=== PATIENT | male | born 1975 | race Caucasian/White ===

== ENCOUNTER 2018-11-26 18:23 | Observation (INO) ==
--- NOTE | 2018-11-26 18:36 | CT Scan Report ---
HEAD CT NONCONTRAST CT DOSE: 709.48 mGy.cm HISTORY: Stroke evaluation TECHNIQUE: Multiaxial CT images of the head were performed without the use of intravenous contrast. A utomated exposure control was utilized for this study. A dose lowering technique was utilized adheri ng to the principles of ALARA. Comparison: None. Findings: Partial aspiration of the left posterior ethmoid air cells. The mastoid air cells are clear . The calvarium and skull base are intact. Focal area of encephalomalacia within the left frontoparie saud junction consistent with an old infarct. There is no mass, hematoma, midline shift, or acute infa rct. Impression: No acute abnormality. 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 Electronically signed by: Jed Mcqueen M.D. 11/26/2018 6:35 PM
[2018-11-26 18:52] LABS: Basophils # (auto) 0.06 K/uL (0-0.2); Basophils % (auto) 0.5 %; Eosinophils # (auto) 0.35 K/uL (0-0.5); Eosinophils % (auto) 3.2 %; Hematocrit (blood only) 35.2 % (42-52); Hemoglobin 12.3 g/dL (14.0-18.0); Immature Granulocytes # (auto) 0.03 K/uL (0.00-0.02); Immature Granulocytes % (auto) 0.3 %; Lymphocytes # (auto) 3.24 K/uL (1.2-3.4); Lymphocytes % (auto) 29.2 %; Mean Corpuscular Hgb Conc 34.9 g/dL (32-36); Mean Platelet Volume 8.9 fL (7.4-10.4); Monocytes # (auto) 0.61 K/uL (0.11-0.59); Monocytes % (auto) 5.5 %; Neutrophils # (auto) 6.79 K/uL (1.4-6.5); Neutrophils % (auto) 61.3 %; Platelet Count 416 K/uL (130-400); RDW Coefficient of Variation 13.1 % (11.5-14.5); RDW Standard Deviation 40.4 fL (36.4-46.3); Red Blood Count 4.14 M/uL (4.7-6.1); White Blood Count 11.08 K/uL (4.8-10.8)
[2018-11-26 19:02] LABS: iSTAT Creatinine 0.7 mg/dl (0.6-1.3); iSTAT Hemoglobin 11.9 g/dl (14.0-18.0); iSTAT Ionized Calcium 1.14 mmol/l (1.12-1.32); iSTAT Potassium 4.3 mEq/L (3.3-5.0)
[2018-11-26 19:10] LABS: Alanine Aminotransferase 19 U/L (12-78); Albumin Level 3.8 gm/dl (3.4-5.0); Aspartate Aminotransferase 12 U/L (15-37); BUN Creatinine Ratio 18.7 (10-20); Blood Urea Nitrogen 17 mg/dl (7-18); Calcium 9.1 mg/dl (8.5-10.1); Carbon Dioxide 25 mmol/L (21-32); Chloride 100 mmol/L (98-107); Creatinine Clr Calc Pharmacy 147.6 ml/min; Est GFR (African American) 121.9; Est GFR (Non-African American) 105.2; Glucose 258 mg/dl (70-99); Magnesium 1.8 mg/dl (1.8-2.4); Potassium 3.8 mmol/L (3.5-5.1); Sodium 135 mmol/L (136-145)
[2018-11-26 19:15] LABS: Albumin Globulin Ratio 1.1 (0.9-2); Alkaline Phosphatase 102 U/L (45-117); Bilirubin,Total 0.3 mg/dl (0.2-1); Globulin 3.6 gm/dl (2.5-4.0); Total Protein 7.4 gm/dl (6.4-8.2); Troponin I < 0.015 ng/ml (0-0.045)
--- NOTE | 2018-11-26 19:20 | XRay Report ---
XR chest 1V portable HISTORY: Stroke symptoms. COMPARISON: None. FINDINGS: Increased markings within the right medial lung base. This may be due to vascular crowding. Otherwise, the lungs are clear. The heart is normal in size. No pleural effusions. No pneumothorax. IMPRESSION: No acute process. Electronically signed by: Jed Mcqueen M.D. 11/26/2018 7:19 PM
[2018-11-26] MEDS ORDERED: OPTIRAY 320 125ml IV PRN (19:28)
--- NOTE | 2018-11-26 20:05 | CT Scan Report ---
HEAD & NECK CTA HISTORY: Stroke symptoms. Weakness. TECHNIQUE: Multiaxial CT images of the head were performed following the intravenous administration o f contrast to evaluate the major cerebral vessels. Multiaxial CT images of the neck were also perform ed following the intravenous administration of contrast to evaluate the major cervical vessels. Maxim um intensity projection images were also obtained. A dose lowering technique was utilized adhering to the principles of ALARA. COMPARISON: Head CT 11/26/2018. FINDINGS: Encephalomalacia within the left frontal parietal region suggest an old infarct. The major dural veno us sinuses are widely patent. Calcified plaque within the distal vertebral arteries and bilateral car otid siphons. This results in moderate multifocal narrowing within the right carotid siphon and mild multifocal narrowing within the left carotid siphon. There is abrupt cut off at the distal left M1 se gment with reconstitution of the distal branches. This may account for the old left MCA territory inf arct. Mild focal narrowing within the bilateral distal vertebral arteries. The bilateral waste management specialist are pat ent. The right A1 segment is absent likely on a congenital basis. No aneurysms identified. The aortic arch and proximal great vessels are widely patent. The bilateral vertebral arteries are patent. Moderate calcified plaque within the bilateral carotid bifurcations, right greater than left. This results in 75% focal stenosis at the takeoff of the right internal carotid artery. There is als o focal mild narrowing of approximately 40% at the distal cervical internal carotid artery best seen on image [id number]. There is focal hypodensity surrounding this with associated calcification. This could r epresent a chronic dissection. This also results in mild aneurysmal dilatation at this location measu ring up to 7 mm. IMPRESSION: 1. Abrupt cut off within the distal left and 1 segment of the MCA with reconstitution of the distal b ranches. This may account for the old left MCA territory infarct is technically age indeterminate. Co nsider brain MRI to evaluate for an acute infarct. 2. Moderate right and mild left multifocal narrowing within the bilateral carotid siphons due to the calcified plaque. 3. Approximate 75% focal stenosis at the takeoff of the right internal carotid artery. 4. 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 This could also represent a chronic dissection and resu lts in 40% narrowing at this location. 5. Additional findings as described above. 2. No significant stenosis, occlusion, or dissection identified within the carotid or vertebral arter ies. Electronically signed by: Jed Mcqueen M.D. 11/26/2018 8:02 PM
[2018-11-26 20:19] LABS: Partial Thromboplastin Time 25.9 Seconds (21.0-31.0); Prothrombin Time 10.7 Seconds (9.0-12.0)
[2018-11-26] MEDS ORDERED: ASPIRIN CHEW 324 MG PO STA (20:29)
[2018-11-26] MEDS ORDERED: SODIUM CHLORIDE 0.9% 1000ML 1,000 ML IV SCH (20:30)
--- NOTE | 2018-11-26 21:37 | History & Physical Report ---
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 Brilinta/aspirin prophylaxis history Plavix resistance as per patient Patient on Plavix instead of usual home dual antiplatelet Rx for the last 2 weeks at psychiatric facility due to unavailability (nonformulary designation) of latter meds hypertension, slightly elevated hyperlipidemia on statin Rx, recent profile drawn during stay at the [facility] PVD status post surgery DM 2 insulin requiring, BSGs in the 200s, unknown baseline control mood disorder, stable following [facility] confinement seizure disorder, stable on Keppra Rx, patient claims last blank staring episode was last week New onset anemia (patient denies prior history although records mention vitamin B12 deficiency, patient denies bleeding concerns) past tobacco abuse OBS Medical telemetry Neurochecks Resume Brilinta-aspirin dual antiplatelet Rx after Brilinta load Permissive hypertension MRI, MRA of the brain, TTE RE recurrent TIA Neurology consult RE recurrent TIA Basal insulin, ISS BG goal 1 40-1 80, carb count coverage, check hemoglobin A1c Anemia work-up DVT prophylaxis. Lovenox subcu Full code History of Present Illness Chief Complaint: Right-sided numbness, weakness Primary Care Provider: Guilherme Sylvester, PA History obtained from patient and records. Medical history significant for recurrent CVA/TIas on dual Brilinta/aspirin prophylaxis, history Plavix resistance as per patient, PVD status post surgery, hypertension, hyperlipidemia, DM 2 insulin requiring, mood disorder, seizure disorder, past tobacco abuse. Patient has been confined at the [facility] the last 2 weeks for mood issues. Patient's home Brilinta/aspirin replaced with Plavix upon arrival at the psychiatric center 2 weeks ago due to Brilinta unavailability at the facility. Patient claims he notified [facility] medical provider of hx Plavix resistance on testing but "they did not listen." Slated to be discharged in the next 2 days given improvement of psychiatric issues. Around 4 PM today patient noted right face, right upper extremity, and right lower extremity numbness, weakness similar to strokes in the past. Transient slurred speech symptoms. Transient achy headache symptoms. Stroke alert called upon arrival at the ER. Patient noted improvement of neurologic symptoms. Full dose aspirin given at the ER on the recommendation of tele-stroke specialist. Medical History as above Lipid panel October, as follows : Total cholesterol 152, serum triglycerides 181, HDL cholesterol 39, VLDL cholesterol 36, LDL cholesterol 77 Surgical History : Tonsillectomy, carotid endarterectomy, hernia surgery Family History : Heart disease, diabetes, stroke Personal/Social history : Past tobacco abuse, occasional EtOH intake, currently unemployed, was previously security work Allergies Allergy/AdvReac Type Severity Reaction Status Date / Time tramadol Allergy Rash Verified 11/26/18 19:04 Home Medications Home Medications Medication Instructions Recorded Confirmed Type acetaminophen [Tylenol] 650 mg PO Q4 PRN 11/26/18 11/26/18 History aripiprazole 10 mg PO HS 11/26/18 11/26/18 History atorvastatin 80 mg PO QAM 11/26/18 11/26/18 History clopidogrel [Plavix] 75 mg PO DAILY 11/26/18 11/26/18 History famotidine 20 mg PO BID PRN 11/26/18 11/26/18 History hydroxyzine pamoate [Vistaril] 50 mg PO HS 11/26/18 11/26/18 History insulin aspart U-100 1 sliding scale dose SUBCUT 11/26/18 11/26/18 History USEASDIRECTD insulin detemir U-100 [Levemir 60 unit SUBCUT HS 11/26/18 11/26/18 History U-100 Insulin] lamotrigine 50 mg PO BID 11/26/18 11/26/18 History levetiracetam [Keppra] 500 mg PO BID 11/26/18 11/26/18 History lidocaine 1 patch TOPICAL QAM 11/26/18 11/26/18 History lisinopril 10 mg PO DAILY 11/26/18 11/26/18 History metformin 1,000 mg PO BID 11/26/18 11/26/18 History metoprolol tartrate 75 mg PO BID 11/26/18 11/26/18 History nicotine 1 patch TRANSDERMAL DAILY 11/26/18 11/26/18 History simethicone 160 mg PO BID PRN 11/26/18 11/26/18 History venlafaxine 37.5 mg PO HS 11/26/18 11/26/18 History zolpidem [Ambien] 10 mg PO HS 11/26/18 11/26/18 History Past Med/Surg History Medical History Stroke TIA (transient ischemic attack) Surgical History No pertinent past surgical history Family History Other No pertinent family history Social History Preferred Language: Icelandic Communication Ability: Effective Second Helper Required: No Beliefs That Will Affect Care: None marital status: Current Living Situation: Spouse and Other Current Living Situation Comment: currently at the [facility] Feels Safe at Home: Yes Safety Concerns: Feels Safe At This Time Smoking Status: Former smoker Do You Dip or Chew Tobacco: No ; Hx Alcohol Use: No Hx Substance Use: No Review of Systems Review of Systems: As per HPI, all 10 systems reviewed, all other ROS negative Physical Exam Physical Exam: GENERAL: Comfortable, obese, no respiratory distress, sitting on the stretcher with legs crossed SKIN: Pallor, warm HEENT: Pale palpebral conjunctivae, no ptosis, dry buccal mucosa NECK : Supple, short neck, no tenderness CHEST : CTA, no tenderness HEART : RRR, no obvious murmurs ABDOMEN: Some distention, nontender EXTREMITIES : Minimal LE swelling, no LE tenderness, no other conspicuous deformities noted NEUROLOGIC : Coherent, no facial asymmetry, no other gross focality Results & Data Vital Signs (Past 12 Hours) Vital Signs Temp Pulse Pulse Resp BP BP Pulse Ox 11/26/18 21:01 77 21 154/90 H 100 11/26/18 20:44 81 17 157/92 H 100 11/26/18 20:31 83 20 157/92 H 100 11/26/18 20:15 84 18 150/93 H 100 11/26/18 20:00 86 18 142/85 H 100 11/26/18 19:45 80 21 131/71 11/26/18 19:37 85 80 23 140/75 140/75 96 11/26/18 19:15 82 19 146/90 H 100 11/26/18 19:00 83 22 115/69 99 11/26/18 18:55 83 23 147/86 H 98 11/26/18 18:38 37 C 84 18 159/92 H 97 Laboratory Results Laboratory Results WBC 11.08 K/uL (4.8-10.8) H 11/26/18 18:42 RBC 4.14 M/uL (4.7-6.1) L 11/26/18 18:42 Hgb 12.3 g/dL (14.0-18.0) L 11/26/18 18:42 POC Hgb 11.9 g/dl (14.0-18.0) L 11/26/18 18:47 Hct 35.2 % (42-52) L 11/26/18 18:42 POC Hct 35 % (42-52) L 11/26/18 18:47 MCV 85.0 fL (80-100) 11/26/18 18:42 MCH 29.7 pg (25-34) 11/26/18 18:42 MCHC 34.9 g/dL (32-36) 11/26/18 18:42 RDW Std Deviation 40.4 fL (36.4-46.3) 11/26/18 18:42 RDW Coeff of Renata 13.1 % (11.5-14.5) 11/26/18 18:42 Plt Count 416 K/uL (130-400) H 11/26/18 18:42 MPV 8.9 fL (7.4-10.4) 11/26/18 18:42 Immature Gran % (Auto) 0.3 % 11/26/18 18:42 Neut % (Auto) 61.3 % 11/26/18 18:42 Lymph % (Auto) 29.2 % 11/26/18 18:42 [place] % (Auto) 5.5 % 11/26/18 18:42 Eos % (Auto) 3.2 % 11/26/18 18:42 Baso % (Auto) 0.5 % 11/26/18 18:42 Immature Gran # (Auto) 0.03 K/uL (0.00-0.02) H 11/26/18 18:42 Neut # (Auto) 6.79 K/uL (1.4-6.5) H 11/26/18 18:42 Lymph # (Auto) 3.24 K/uL (1.2-3.4) 11/26/18 18:42 [place] # (Auto) 0.61 K/uL (0.11-0.59) H 11/26/18 18:42 Eos # (Auto) 0.35 K/uL (0-0.5) 11/26/18 18:42 Baso # (Auto) 0.06 K/uL (0-0.2) 11/26/18 18:42 PT 10.7 Seconds (9.0-12.0) 11/26/18 19:50 INR 1.0 (0.9-1.1) 11/26/18 19:50 APTT 25.9 Seconds (21.0-31.0) 11/26/18 19:50 PTT Ratio 1.0 11/26/18 19:50 POC Sodium 134 mEq/L (135-144) L 11/26/18 18:47 Sodium 135 mmol/L (136-145) L 11/26/18 18:42 POC Potassium 4.3 mEq/L (3.3-5.0) 11/26/18 18:47 Potassium 3.8 mmol/L (3.5-5.1) 11/26/18 18:42 POC Chloride 96 mEq/L (101-112) L 11/26/18 18:47 Chloride 100 mmol/L (98-107) 11/26/18 18:42 Carbon Dioxide 25 mmol/L (21-32) 11/26/18 18:42 POC Total CO2 26 mEq/l (24-31) 11/26/18 18:47 Anion Gap 10.0 (3-11) 11/26/18 18:42 POC Anion Gap 17.0 mmol/L (16-25) 11/26/18 18:47 POC BUN 20 mg/dl (7-18) H 11/26/18 18:47 BUN 17 mg/dl (7-18) 11/26/18 18:42 Creatinine 0.88 mg/dl (0.6-1.4) 11/26/18 18:42 POC Creatinine 0.7 mg/dl (0.6-1.3) 11/26/18 18:47 Est Cr Clr Drug Dosing 147.6 ml/min 11/26/18 18:42 Est GFR ( Amer) 121.9 11/26/18 18:42 Est GFR (Non-Af Amer) 105.2 11/26/18 18:42 BUN/Creatinine Ratio 18.7 (10-20) 11/26/18 18:42 Glucose 258 mg/dl (70-99) H 11/26/18 18:42 POC Glucose (other) 268 mg/dl (70-99) H 11/26/18 18:47 Calcium 9.1 mg/dl (8.5-10.1) 11/26/18 18:42 POC Ioniz Calcium Trevor 1.14 mmol/l (1.12-1.32) 11/26/18 18:47 Magnesium 1.8 mg/dl (1.8-2.4) 11/26/18 18:42 Total Bilirubin 0.3 mg/dl (0.2-1) 11/26/18 18:42 AST 12 U/L (15-37) L 11/26/18 18:42 ALT 19 U/L (12-78) 11/26/18 18:42 Alkaline Phosphatase 102 U/L (45-117) 11/26/18 18:42 Troponin I < 0.015 ng/ml (0-0.045) 11/26/18 18:42 Total Protein 7.4 gm/dl (6.4-8.2) 11/26/18 18:42 Albumin 3.8 gm/dl (3.4-5.0) 11/26/18 18:42 Globulin 3.6 gm/dl (2.5-4.0) 11/26/18 18:42 Albumin/Globulin Ratio 1.1 (0.9-2) 11/26/18 18:42 TSH 0.818 uIu/ml (0.300-4.500) 11/26/18 18:[address] head: No acute abnormality. 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 CTA head neck: 1. Abrupt cut off within the distal left and 1 segment of the MCA with reconstitution of the distal branches. This may account for the old left MCA territory infarct is technically age indeterminate. Consider brain MRI to evaluate for an acute infarct. 2. Moderate right and mild left multifocal narrowing within the bilateral carotid siphons due to the calcified plaque. 3. Approximate 75% focal stenosis at the takeoff of the right internal carotid a rtery. 4. 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 This could also represent a chronic dissection and results in 40% narrowing at this location. 5. Additional findings as described above. 2. No significant stenosis, occlusion, or dissection identified within the carotid or vertebral arteries. Chest x-ray: No acute process EKG as per my interpretation : Rate 80, NSR, normal axis, no ischemia
[2018-11-26] MEDS ORDERED: TICAGRELOR 90 MG TAB PO ONE (21:58)
--- NOTE | 2018-11-26 22:42 | Emergency Department Note ---
Entered by Ally Cano acting as a scribe for Kalpana Cabral MD History of Present Illness General Chief complaint: Stroke/CVA Symptoms Time Seen by Provider: 11/26/18 18:24 Source: patient and EMS History of Present Illness Onset (ago): hour(s) (1.5) Location: face, upper extremity (arm) and right Pain Consistency: + constant Quality: + other (weakness) Associated symptoms: + other (tingling, dizziness) The patient is a 43 year old male who presents to the Emergency Room with complaints of an episode of right sided weakness in his face and arm beginning 1.5 hours ago. The patient reports tingling in his right arm beginning 2.5 hours ago. He states that he had an episode of dizziness and weakness yesterday evening that resolved on its own. The patient states that he has a history of stroke and TIAs. He notes the most recent major stroke occurred 5 years ago. The patient states that he has a history of smoking and is still currently smoking. EMS states the patient has a history of carotid stenosis, and that he is currently taking Plavix. EMS reports the patient is currently an inpatient at [facility]. EMS reports that the patient is speaking clearly, however he keeps changing his story and symptom's timeline. EMS notes that the patient has a his tory of depression, diabetes, and high blood pressure. EMS states the patient has no allergies. Home Medications Home Medications Medication Instructions Recorded Confirmed Type acetaminophen [Tylenol] 650 mg PO Q4 PRN 11/26/18 11/26/18 History aripiprazole 10 mg PO HS 11/26/18 11/26/18 History atorvastatin 80 mg PO QAM 11/26/18 11/26/18 History clopidogrel [Plavix] 75 mg PO DAILY 11/26/18 11/26/18 History famotidine 20 mg PO BID PRN 11/26/18 11/26/18 History hydroxyzine pamoate [Vistaril] 50 mg PO HS 11/26/18 11/26/18 History insulin aspart U-100 1 sliding scale dose SUBCUT 11/26/18 11/26/18 History USEASDIRECTD insulin detemir U-100 [Levemir 60 unit SUBCUT HS 11/26/18 11/26/18 History U-100 Insulin] lamotrigine 50 mg PO BID 11/26/18 11/26/18 History levetiracetam [Keppra] 500 mg PO BID 11/26/18 11/26/18 History lidocaine 1 patch TOPICAL QAM 11/26/18 11/26/18 History lisinopril 10 mg PO DAILY 11/26/18 11/26/18 History metformin 1,000 mg PO BID 11/26/18 11/26/18 History metoprolol tartrate 75 mg PO BID 11/26/18 11/26/18 History nicotine 1 patch TRANSDERMAL DAILY 11/26/18 11/26/18 History simethicone 160 mg PO BID PRN 11/26/18 11/26/18 History venlafaxine 37.5 mg PO HS 11/26/18 11/26/18 History zolpidem [Ambien] 10 mg PO HS 11/26/18 11/26/18 History Allergies Allergy/AdvReac Type Severity Reaction Status Date / Time tramadol Allergy Rash Verified 11/26/18 19:04 Past Med/Surg History Medical History Stroke TIA (transient ischemic attack) Surgical History No pertinent past surgical history Family History Other No pertinent family history Social History Preferred Language: Togolese Communication Ability: Effective Print Journalist Required: No Beliefs That Will Affect Care: None marital status: Current Living Situation: Spouse and Other Current Living Situation Comment: currently at [facility] Feels Safe at Home: Yes Safety Concerns: Feels Safe At This Time Smoking Status: Former smoker Do You Dip or Chew Tobacco: No ; Hx Alcohol Use: No Hx Substance Use: No Review of Systems See HPI for pertinent positives & negatives. and A total of 10 systems reviewed and were otherwise negative Physical Exam Vital Signs Vital Signs - 24 hr 11/26/18 18:38 11/26/18 18:55 11/26/18 19:00 Temperature 37 C Temperature Source Oral Sepsis Recent Fever Within 48 Hours No Sepsis Action Taken by Nursing No Action Required Pulse Rate 84 83 Pulse Rate [Apical] 83 Pulse Rate from SpO2 Sensor 83 Respiratory Rate 18 23 22 Respiratory Effort / Characteristics Non-Labored Spontaneous Respiratory Depth Normal Respiratory Pattern Regular Blood Pressure 159/92 H 115/69 Blood Pressure [Left Arm] 147/86 H Blood Pressure Mean 114 84 Blood Pressure Mean [Left Arm] 106 Blood Pressure Position Lying Blood Pressure Position [Left Arm] Lying Pulse Oximetry 97 98 99 Oxygen Delivery Method Room Air Room Air 11/26/18 19:15 11/26/18 19:37 11/26/18 19:45 Temperature Temperature Source Sepsis Recent Fever Within 48 Hours Sepsis Action Taken by Nursing Pulse Rate 82 85 80 Pulse Rate [Apical] 80 Pulse Rate from SpO2 Sensor 83 Respiratory Rate 19 23 21 Respiratory Effort / Characteristics Non-Labored Respiratory Depth Normal Respiratory Pattern Blood Pressure 146/90 H 140/75 131/71 Blood Pressure [Left Arm] 140/75 Blood Pressure Mean 108 96 91 Blood Pressure Mean [Left Arm] 96 Blood Pressure Position Blood Pressure Position [Left Arm] Pulse Oximetry 100 96 Oxygen Delivery Method Room Air 11/26/18 20:00 11/26/18 20:15 11/26/18 20:31 Temperature Temperature Source Sepsis Recent Fever Within 48 Hours Sepsis Action Taken by Nursing Pulse Rate 86 84 83 Pulse Rate [Apical] Pulse Rate from SpO2 Sensor 86 85 83 Respiratory Rate 18 18 20 Respiratory Effort / Characteristics Respiratory Depth Respiratory Pattern Blood Pressure 142/85 H 150/93 H 157/92 H Blood Pressure [Left Arm] Blood Pressure Mean 104 112 113 Blood Pressure Mean [Left Arm] Blood Pressure Position Blood Pressure Position [Left Arm] Pulse Oximetry 100 100 100 Oxygen Delivery Method 11/26/18 20:44 11/26/18 21:01 11/26/18 21:18 Temperature Temperature Source Sepsis Recent Fever Within 48 Hours Sepsis Action Taken by Nursing Pulse Rate 77 81 Pulse Rate [Apical] 81 Pulse Rate from SpO2 Sensor 78 82 Respiratory Rate 17 21 18 Respiratory Effort / Characteristics Non-Labored Respiratory Depth Normal Respiratory Pattern Blood Pressure 154/90 H Blood Pressure [Left Arm] 157/92 H Blood Pressure Mean 111 Blood Pressure Mean [Left Arm] 113 Blood Pressure Position Blood Pressure Position [Left Arm] Pulse Oximetry 100 100 100 Oxygen Delivery Method Room Air 11/26/18 21:20 11/26/18 21:46 Temperature Temperature Source Sepsis Recent Fever Within 48 Hours Sepsis Action Taken by Nursing Pulse Rate 76 69 Pulse Rate [Apical] Pulse Rate from SpO2 Sensor 77 70 Respiratory Rate 17 14 Respiratory Effort / Characteristics Respiratory Depth Respiratory Pattern Blood Pressure 145/82 H 158/90 H Blood Pressure [Left Arm] Blood Pressure Mean 103 112 Blood Pressure Mean [Left Arm] Blood Pressure Position Blood Pressure Position [Left Arm] Pulse Oximetry 100 100 Oxygen Delivery Method Vital signs reviewed. General: Well-appearing middle aged male, in no significant distress. HEENT: No scleral icterus, PERRLA, neck supple. Atraumatic. Cardiovascular: Regular rate and rhythm, no extra sounds. Pulmonary: Clear to auscultation bilaterally, normal work of breathing. Abdomen: Obese. Soft, nontender, nondistended, positive bowel sounds. Musculoskeletal: Atraumatic, no peripheral edema. Neurologic: Patient awake alert and oriented x 3, 4/5 strength in right lower extremity. 5/5 strength in left lower extremity. Cranial nerves 2 through 12 grossly intact. Answering questions appropriately. No tongue deviation. Speech clear. No pronator drift. Intact finger to nose. Skin: Warm, dry, no rash Course 1819: Past medical records reviewed. The patient was evaluated in room B01. A complete history and physical exam was performed. 2129: Upon reevaluation, I discussed findings and results with the patient. He verbalized agreement of the treatment plan. [facility]. The patient will be evaluated for further management and care. Administered Medications Aripiprazole (Abilify) 10 mg PO HS [facility] Stop: 12/26/18 23:06 Last Admin: 11/27/18 20:35 Dose: 10 mg Documented by: [id number] Admin: 11/26/18 23:49 Dose: 10 mg Documented by: [id number] Aspirin (Ecotrin) 81 mg PO [facility] Stop: 12/27/18 08:59 Last Admin: 11/27/18 08:53 Dose: 81 mg Documented by: [id number] Atorvastatin Calcium (Lipitor) 80 mg PO QAM [facility] Stop: 12/27/18 08:59 Last Admin: 11/27/18 08:52 Dose: 80 mg Documented by: [id number] Enoxaparin S[facility] ([facility]ox) [facility] Stop: 12/27/18 08:59 Last Admin: 11/27/18 08:54 Dose: 40 mg Documented by: [id number] Insulin Aspart (Novolog Flexpen) 0 units SC ACHS [facility] Stop: 12/26/18 23:44 Last Admin: 11/27/18 20:46 Dose: 6 units Documented by: [id number] Cosigned by: [id number] Admin: 11/27/18 17:49 Dose: 6 units Documented by: [id number] Cosigned by: [id number] Admin: 11/27/18 12:10 Dose: 5 units Documented by: [id number] Cosigned by: [id number] Admin: 11/27/18 08:50 Dose: 4 units Documented by: [id number] Cosigned by: [id number] Admin: 11/26/18 23:54 Dose: 8 units Documented by: [id number] Cosigned by: [id number] Insulin Detemir (Levemir Flextouch) 30 units SC BID [facility] Stop: 12/26/18 23:44 Last Admin: 11/27/18 20:38 Dose: 30 units Documented by: [id number] Cosigned by: [id number] Admin: 11/27/18 08:55 Dose: 30 units Documented by: [id number] Cosigned by: [id number] Admin: 11/26/18 23:52 Dose: 30 units Documented by: [id number] Cosigned by: [id number] Lamotrigine (Lamictal) 50 mg PO BID [facility] Stop: 12/26/18 23:06 Last Admin: 11/27/18 20:37 Dose: 50 mg Documented by: [id number] Admin: 11/27/18 08:51 Dose: 50 mg Documented by: [id number] Admin: 11/26/18 23:50 Dose: 50 mg Documented by: [id number] Levetiracetam (Keppra) 500 mg PO BID [facility] Stop: 12/26/18 23:06 Last Admin: 11/27/18 20:35 Dose: 500 mg Documented by: [id number] Admin: 11/27/18 08:52 Dose: 500 mg Documented by: [id number] Admin: 11/26/18 23:49 Dose: 500 mg Documented by: [id number] Metoprolol Tartrate (Lopressor) 25 mg PO BID [facility] Stop: 12/27/18 08:59 Last Admin: 11/27/18 20:36 Dose: 25 mg Documented by: [id number] Admin: 11/27/18 08:52 Dose: 25 mg Documented by: [id number] Miscellaneous (Remove Nicoderm Patch) 1 ea N/A HS [facility] Stop: 12/27/18 00:59 Last Admin: 11/27/18 20:51 Dose: Not Given Documented by: [id number] Admin: 11/27/18 05:19 Dose: Not Given Documented by: [id number] Nicotine (Nicoderm Cq) 14 mg TD DAILY [facility] Stop: 12/27/18 08:59 Last Admin: 11/27/18 08:55 Dose: Not Given Documented by: [id number] Ticagrelor (Brilinta) 90 mg PO BID [facility] Stop: 12/27/18 09:59 Last Admin: 11/27/18 20:36 Dose: 90 mg Documented by: [id number] Admin: 11/27/18 10:33 Dose: 90 mg Documented by: [id number] Venlafaxine HCl (Effexor Extended Release) 37.5 mg PO HS [facility] Stop: 12/27/18 20:59 Last Admin: 11/27/18 20:35 Dose: 37.5 mg Documented by: [id number] Zolpidem Tartrate (Ambien) 10 mg PO HS [facility] Stop: 12/27/18 20:59 Last Admin: 11/27/18 20:46 Dose: 10 mg Documented by: [id number] Discontinued Medications Aspirin (Aspirin) 324 mg PO NOW STA Stop: 11/26/18 20:30 Last Admin: 11/26/18 20:34 Dose: 324 mg Documented by: [id number] Sodium Chloride (Nss 1000ml) 1,000 mls @ 125 mls/hr IV .Q8H [facility] Stop: 12/26/18 20:29 Last Infusion: 11/26/18 23:44 Dose: 0 mls/hr Documented by: [id number] Infusion: 11/26/18 23:30 Dose: 0 mls/hr Documented by: [id number] Infusion: 11/26/18 23:30 Dose: 0 mls/hr Documented by: [id number] Admin: 11/26/18 20:32 Dose: 125 mls/hr Documented by: [id number] Potassium Chloride/Sodium Chloride (Normal Saline W/20 Meq Kcl) 20 meq in 1,000 mls @ 60 mls/hr IV .[id number] ONE Stop: 11/27/18 16:24 Last Infusion: 11/27/18 18:27 Dose: 60 mls/hr Documented by: [id number] Infusion: 11/27/18 16:23 Dose: 60 mls/hr Documented by: [id number] Infusion: 11/27/18 14:44 Dose: 0 mls/hr Documented by: [id number] Admin: 11/26/18 23:51 Dose: 60 mls/hr Documented by: [id number] Infusion: 11/26/18 23:51 Dose: 60 mls/hr Documented by: [id number] Admin: 11/26/18 23:47 Dose: 60 mls/hr Documented by: [id number] Ioversol (Optiray 320 125ml) 120 ml IV ONCE PRN PRN Reason: Interaction Checking Stop: 11/30/18 19:27 Last Admin: 11/26/18 19:28 Dose: 120 ml Documented by: [id number] Lorazepam (Ativan) 1 mg PO ONE ONE Stop: 11/27/18 10:57 Last Admin: 11/27/18 14:41 Dose: Not Given Documented by: [id number] Lorazepam (Ativan) 1 mg PO ONE ONE Stop: 11/27/18 14:46 Last Admin: 11/27/18 14:42 Dose: 1 mg Documented by: [id number] Ticagrelor (Brilinta) 180 mg PO ONE ONE Stop: 11/26/18 21:59 Last Admin: 11/26/18 22:18 Dose: 180 mg Documented by: [id number] Medical Decision Making Differential Diagnosis Differential Diagnosis includes but is not limited to dehydration, stroke, anemia, hypoglycemia, hyponatremia, hypernatremia, urinary tract infection, pneumonia, bronchitis, sepsis, gastroenteritis, additional abdominal pathology, metabolic abnormalities and infections. Medical Records Attestation: I reviewed the patient's medical records. Home Medications Current Medication List: was personally reviewed by me Laboratory Data Attestation: I reviewed the patient's lab results. Result diagrams: 11/27/18 06:38 11/27/18 06:38 Lab Results 11/26/18 11/26/18 11/26/18 Range/Units 18:42 18:42 18:42 WBC 11.08 H (4.8-10.8) K/uL RBC 4.14 L (4.7-6.1) M/uL Hgb 12.3 L (14.0-18.0) g/dL POC Hgb (14.0-18.0) g/dl Hct 35.2 L (42-52) % POC Hct (42-52) % MCV 85.0 (80-100) fL MCH 29.7 (25-34) pg MCHC 34.9 (32-36) g/dL RDW Std Deviation 40.4 (36.4-46.3) fL RDW Coeff of Renata 13.1 (11.5-14.5) % Plt Count 416 H (130-400) K/uL MPV 8.9 (7.4-10.4) fL Immature Gran % (Auto) 0.3 % Neut % (Auto) 61.3 % Lymph % (Auto) 29.2 % Craig % (Auto) 5.5 % Eos % (Auto) 3.2 % Baso % (Auto) 0.5 % Immature Gran # (Auto) 0.03 H (0.00-0.02) K/uL Neut # (Auto) 6.79 H (1.4-6.5) K/uL Lymph # (Auto) 3.24 (1.2-3.4) K/uL Craig # (Auto) 0.61 H (0.11-0.59) K/uL Eos # (Auto) 0.35 (0-0.5) K/uL Baso # (Auto) 0.06 (0-0.2) K/uL PT Cancelled INR Cancelled APTT Cancelled PTT Ratio Cancelled POC Sodium (135-144) mEq/L Sodium 135 L (136-145) mmol/L POC Potassium (3.3-5.0) mEq/L Potassium 3.8 (3.5-5.1) mmol/L POC Chloride (101-112) mEq/L Chloride 100 (98-107) mmol/L Carbon Dioxide 25 (21-32) mmol/L POC Total CO2 (24-31) mEq/l Anion Gap 10.0 (3-11) POC Anion Gap (16-25) mmol/L POC BUN (7-18) mg/dl BUN 17 (7-18) mg/dl Creatinine 0.88 (0.6-1.4) mg/dl POC Creatinine (0.6-1.3) mg/dl Est Cr Clr Drug Dosing 147.6 ml/min Est GFR ( Amer) 121.9 Est GFR (Non-Af Amer) 105.2 BUN/Creatinine Ratio 18.7 (10-20) Glucose 258 H (70-99) mg/dl POC Glucose (70-99) POC Glucose (other) (70-99) mg/dl Estimat Average Glucose mg/dl Hemoglobin A1c (4.5-5.6) % Calcium 9.1 (8.5-10.1) mg/dl POC Ioniz Calcium Trevor (1.12-1.32) mmol/l Magnesium 1.8 (1.8-2.4) mg/dl Total Bilirubin 0.3 (0.2-1) mg/dl AST 12 L (15-37) U/L ALT 19 (12-78) U/L Alkaline Phosphatase 102 (45-117) U/L Troponin I < 0.015 (0-0.045) ng/ml Total Protein 7.4 (6.4-8.2) gm/dl Albumin 3.8 (3.4-5.0) gm/dl Globulin 3.6 (2.5-4.0) gm/dl Albumin/Globulin Ratio 1.1 (0.9-2) TSH 0.818 (0.300-4.500) uIu/ml 11/26/18 11/26/18 11/26/18 Range/Units 18:42 18:42 18:47 WBC (4.8-10.8) K/uL RBC (4.7-6.1) M/uL Hgb (14.0-18.0) g/dL POC Hgb 11.9 L (14.0-18.0) g/dl Hct (42-52) % POC Hct 35 L (42-52) % MCV (80-100) fL MCH (25-34) pg MCHC (32-36) g/dL RDW Std Deviation (36.4-46.3) fL RDW Coeff of Renata (11.5-14.5) % Plt Count (130-400) K/uL MPV (7.4-10.4) fL Immature Gran % (Auto) % Neut % (Auto) % Lymph % (Auto) % Craig % (Auto) % Eos % (Auto) % Baso % (Auto) % Immature Gran # (Auto) (0.00-0.02) K/uL Neut # (Auto) (1.4-6.5) K/uL Lymph # (Auto) (1.2-3.4) K/uL Craig # (Auto) (0.11-0.59) K/uL Eos # (Auto) (0-0.5) K/uL Baso # (Auto) (0-0.2) K/uL PT INR APTT PTT Ratio POC Sodium 134 L (135-144) mEq/L Sodium (136-145) mmol/L POC Potassium 4.3 (3.3-5.0) mEq/L Potassium (3.5-5.1) mmol/L POC Chloride 96 L (101-112) mEq/L Chloride (98-107) mmol/L Carbon Dioxide (21-32) mmol/L POC Total CO2 26 (24-31) mEq/l Anion Gap (3-11) POC Anion Gap 17.0 (16-25) mmol/L POC BUN 20 H (7-18) mg/dl BUN (7-18) mg/dl Creatinine (0.6-1.4) mg/dl POC Creatinine 0.7 (0.6-1.3) mg/dl Est Cr Clr Drug Dosing ml/min Est GFR ( Amer) Est GFR (Non-Af Amer) BUN/Creatinine Ratio (10-20) Glucose (70-99) mg/dl POC Glucose 314 H* (70-99) POC Glucose (other) 268 H (70-99) mg/dl Estimat Average Glucose 171 mg/dl Hemoglobin A1c 7.6 H (4.5-5.6) % Calcium (8.5-10.1) mg/dl POC Ioniz Calcium Trevor 1.14 (1.12-1.32) mmol/l Magnesium (1.8-2.4) mg/dl Total Bilirubin (0.2-1) mg/dl AST (15-37) U/L ALT (12-78) U/L Alkaline Phosphatase (45-117) U/L Troponin I (0-0.045) ng/ml Total Protein (6.4-8.2) gm/dl Albumin (3.4-5.0) gm/dl Globulin (2.5-4.0) gm/dl Albumin/Globulin Ratio (0.9-2) TSH (0.300-4.500) uIu/ml 11/26/18 Range/Units 19:50 WBC (4.8-10.8) K/uL RBC (4.7-6.1) M/uL Hgb (14.0-18.0) g/dL POC Hgb (14.0-18.0) g/dl Hct (42-52) % POC Hct (42-52) % MCV (80-100) fL MCH (25-34) pg MCHC (32-36) g/dL RDW Std Deviation (36.4-46.3) fL RDW Coeff of Renata (11.5-14.5) % Plt Count (130-400) K/uL MPV (7.4-10.4) fL Immature Gran % (Auto) % Neut % (Auto) % Lymph % (Auto) % Craig % (Auto) % Eos % (Auto) % Baso % (Auto) % Immature Gran # (Auto) (0.00-0.02) K/uL Neut # (Auto) (1.4-6.5) K/uL Lymph # (Auto) (1.2-3.4) K/uL Craig # (Auto) (0.11-0.59) K/uL Eos # (Auto) (0-0.5) K/uL Baso # (Auto) (0-0.2) K/uL PT 10.7 INR 1.0 APTT 25.9 PTT Ratio 1.0 POC Sodium (135-144) mEq/L Sodium (136-145) mmol/L POC Potassium (3.3-5.0) mEq/L Potassium (3.5-5.1) mmol/L POC Chloride (101-112) mEq/L Chloride (98-107) mmol/L Carbon Dioxide (21-32) mmol/L POC Total CO2 (24-31) mEq/l Anion Gap (3-11) POC Anion Gap (16-25) mmol/L POC BUN (7-18) mg/dl BUN (7-18) mg/dl Creatinine (0.6-1.4) mg/dl POC Creatinine (0.6-1.3) mg/dl Est Cr Clr Drug Dosing ml/min Est GFR ( Amer) Est GFR (Non-Af Amer) BUN/Creatinine Ratio (10-20) Glucose (70-99) mg/dl POC Glucose (70-99) POC Glucose (other) (70-99) mg/dl Estimat Average Glucose mg/dl Hemoglobin A1c (4.5-5.6) % Calcium (8.5-10.1) mg/dl POC Ioniz Calcium Trevor (1.12-1.32) mmol/l Magnesium (1.8-2.4) mg/dl Total Bilirubin (0.2-1) mg/dl AST (15-37) U/L ALT (12-78) U/L Alkaline Phosphatase (45-117) U/L Troponin I (0-0.045) ng/ml Total Protein (6.4-8.2) gm/dl Albumin (3.4-5.0) gm/dl Globulin (2.5-4.0) gm/dl Albumin/Globulin Ratio (0.9-2) TSH (0.300-4.500) uIu/ml Imaging Data Radiologist's Impression: Radiology results as stated below per my review and the radiologist's interpretation: HEAD CT NONCONTRAST CT DOSE: 709.48 mGy.cm HISTORY: Stroke evaluation TECHNIQUE: Multiaxial CT images of the head were performed without the use of intravenous contrast. Automated exposure control was utilized for this study. A dose lowering technique was utilized adhering to the principles of ALARA. Comparison: None. Findings: Partial aspiration of the left posterior ethmoid air cells. The mastoid air cells are clear. The calvarium and skull base are intact. Focal area of encephalomalacia within the left frontoparietal junction consistent with an old infarct. There is no mass, hematoma, midline shift, or acute infarct. Impression: No acute abnormality. 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 Electronically signed by: Jed cMqueen M.D. 11/26/2018 6:35 PM XR chest 1V portable HISTORY: Stroke symptoms. COMPARISON: None. FINDINGS: Increased markings within the right medial lung base. This may be due to vascular crowding. Otherwise, the lungs are clear. The heart is normal in size. No pleural effusions. No pneumothorax. IMPRESSION: No acute process. Electronically signed by: eJd Mcqueen M.D. 11/26/2018 7:19 PM HEAD & NECK CTA HISTORY: Stroke symptoms. Weakness. TECHNIQUE: Multiaxial CT images of the head were performed following the int ravenous administration of contrast to evaluate the major cerebral vessels. Multiaxial CT images of the neck were also performed following the intravenous administration of contrast to evaluate the major cervical vessels. Maximum intensity projection images were also obtained. A dose lowering technique was utilized adhering to the principles of ALARA. COMPARISON: Head CT 11/26/2018. FINDINGS: Encephalomalacia within the left frontal parietal region suggest an old infarct. The major dural venous sinuses are widely patent. Calcified plaque within the distal vertebral arteries and bilateral carotid siphons. This results in moderate multifocal narrowing within the right carotid siphon and mild multifocal narrowing within the left carotid siphon. There is abrupt cut off at the distal left M1 segment with reconstitution of the distal branches. This may account for the old left MCA territory infarct. Mild focal narrowing within the bilateral distal vertebral arteries. The bilateral motel front desk clerk are patent. The right A1 segment is absent likely on a congenital basis. No aneurysms identified. The aortic arch and proximal great vessels are widely patent. The bilateral vertebral arteries are patent. Moderate calcified plaque within the bilateral carotid bifurcations, right greater than left. This results in 75% focal stenosis at the takeoff of the right internal carotid artery. There is also focal mild narrowing of approximately 40% at the distal cervical internal carotid artery best seen on image [id number]. There is focal hypodensity surrounding this with associated calcification. This could represent a chronic dissection. This also results in mild aneurysmal dilatation at this location measuring up to 7 mm. IMPRESSION: 1. Abrupt cut off within the distal left and 1 segment of the MCA with reconstitution of the distal branches. This may account for the old left MCA territory infarct is technically age indeterminate. Consider brain MRI to evaluate for an acute infarct. 2. Moderate right and mild left multifocal narrowing within the bilateral carotid siphons due to the calcified plaque. 3. Approximate 75% focal stenosis at the takeoff of the right internal carotid artery. 4. 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 This could also represent a chronic dissection and results in 40% narrowing at this location. 5. Additional findings as described above. 2. No significant stenosis, occlusion, or dissection identified within the carotid or vertebral arteries. Electronically signed by: Jed Mcqueen M.D. 11/26/2018 8:02 PM HEAD & NECK CTA HISTORY: Stroke symptoms. Weakness. TECHNIQUE: Multiaxial CT images of the head were performed following the intravenous administration of contrast to evaluate the major cerebral vessels. Multiaxial CT images of the neck were also performed following the intravenous administration of contrast to evaluate the major cervical vessels. Maximum intensity projection images were also obtained. A dose lowering technique was utilized adhering to the principles of ALARA. COMPARISON: Head CT 11/26/2018. FINDINGS: Encephalomalacia within the left frontal parietal region suggest an old infarct. The major dural venous sinuses are widely patent. Calcified plaque within the distal vertebral arteries and bilateral carotid siphons. This results in moderate multifocal narrowing within the right carotid siphon and mild multifocal narrowing within the left carotid siphon. There is abrupt cut off at the distal left M1 segment with reconstitution of the distal branches. This may account for the old left MCA territory infarct. Mild focal narrowing within the bilateral distal vertebral arteries. The bilateral motel front desk clerk are patent. The right A1 segment is absent likely on a congenital basis. No aneurysms identified. The aortic arch and proximal great vessels are widely patent. The bilateral vertebral arteries are patent. Moderate calcified plaque within the bilateral carotid bifurcations, right greater than left. This results in 75% focal stenosis at the takeoff of the right internal carotid artery. There is also focal mild narrowing of approximately 40% at the distal cervical internal carotid artery best seen on image 357. There is focal hypodensity surrounding this with associated calcification. This could represent a chronic dissection. This also results in mild aneurysmal dilatation at this location measuring up to 7 mm. IMPRESSION: 1. Abrupt cut off within the distal left and 1 segment of the MCA with reconstitution of the distal branches. This may account for the old left MCA territory infarct is technically age indeterminate. Consider brain MRI to evaluate for an acute infarct. 2. Moderate right and mild left multifocal narrowing within the bilateral carotid siphons due to the calcified plaque. 3. Approximate 75% focal stenosis at the takeoff of the right internal carotid artery. 4. 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 This could also represent a chronic dissection and results in 40% narrowing at this location. 5. Additional findings as described above. 2. No significant stenosis, occlusion, or dissection identified within the carotid or vertebral arteries. Electronically signed by: Jed Mcqueen M.D. 11/26/2018 8:02 PM Blood Pressure Blood Pressure Findings: Elevated blood pressure Blood Pressure Disposition: further management by hospitalist MDM Narrative This patient was evaluated and appeared to be in no significant distress. IV access was obtained and laboratory work was drawn. Physical examination reveals some mild right lower extremity weakness, but no pronator drift, intact [id number] and cranial nerves. A stroke alert had been called, CT of the brain was significant only for previous infarct. After speaking with Dr. Fry of telestroke, she has recommended CT angiogram of the head and neck. This study is read as above. The patient's account of the preceding events is difficult to rely on. He does expresses frustration that the psychiatric facility did not have Brilinta and switched him to Plavix. It does seem that he has been receiving Plavix but does not have aspirin on his medication orders. Patient was given aspirin and hydrated with IV fluids. He is currently doing well on my reevaluation and agrees with the plan. Case was discussed with Dr. Raines of the hospitalist service will evaluate the patient for further management. Impression & Plan Stroke-like symptoms, History of cardioembolic cerebrovascular accident (CVA) Critical Care Time Critical Care Time: Yes I have personally spent greater than 35 minutes of critical care time in the direct management of this patient. This includes bedside care, interpretation of diagnostic studies, and testing, discussion with consultants, patient, and family members, and other required patient management activities. This 35 minutes is in excess of all separately billable procedures. Discharge Plan Visit Data *Final* Discharge Date/Time: 11/26/18 22:39 Chief Complaint: Stroke/CVA Symptoms ED Provider: Kalpana Cabral Discharge Problem: Stroke-like symptoms, History of cardioembolic cerebrovascular accident (CVA) Patient Disposition: Admitted As Inpatient Discharge Instructions Interventions: ED Discharge Assessment Last Done: 11/26/18 22:39 The scribe's documentation has been prepared under my direction and personally reviewed by me in its entirety. I confirm that the note above accurately reflects all work, treatment, procedures, and medical decision making performed by me.
[2018-11-26] MEDS ORDERED: PROMETHAZINE HCL 12.5 MG in SODIUM CHLORIDE 0.9% 50 ML IV PRN (23:07)
[2018-11-26] MEDS ORDERED: PHARMACIST DISCHARGE MED REC CONSULT PRN (23:07)
[2018-11-26] MEDS ORDERED: SIMETHICONE 80 MG CHEW PO PRN (23:07)
[2018-11-26] MEDS ORDERED: GLUCOSE 10 TABS/TUBE PO PRN (23:07)
[2018-11-26] MEDS ORDERED: OXYCODONE HCL IR 5 MG TAB (IMMEDIATE RELEASE) PO PRN (23:07)
[2018-11-26] MEDS ORDERED: ACETAMINOPHEN 325 MG TAB PO PRN ×2 (23:07)
[2018-11-26] MEDS ORDERED: NITROGLYCERIN SL 0.4 MG/TAB TAB SL PRN (23:07)
[2018-11-26] MEDS ORDERED: CARBOHYDRATES FOR HYPOGLYCEMIA PO PRN (23:07)
[2018-11-26] MEDS ORDERED: GLUCAGON FOR INJ 1 MG VIAL SQ PRN (23:07)
[2018-11-26] MEDS ORDERED: FAMOTIDINE 20 MG TAB PO PRN (23:07)
[2018-11-26] MEDS ORDERED: DEXTROSE 50% 50 ML SYRINGE IV PRN (23:07)
[2018-11-26] MEDS ORDERED: GLUCOSE 40% GEL 15 GM TUBE PO PRN (23:07)
[2018-11-26] MEDS: NSS + 20MEQ KCL 20 MEQ/1,000 ML BAG IV ONE ×2 (23:47→23:51)
[2018-11-26] MEDS: levETIRAcetam 500 MG TAB PO SCH (23:49)
[2018-11-26] MEDS: ARIPiprazole 10 MG TAB PO SCH (23:49)
[2018-11-26] MEDS: lamoTRIgine 25 MG TAB PO SCH (23:50)
[2018-11-26] MEDS: INSULIN DETEMIR FLEXPEN/FLEX TOUCH 100 UNITS/ML 3ML SC SCH (23:52)
[2018-11-26] MEDS: INSULIN ASPART 100 UNITS/ML 3 ML PEN SC SCH (23:54)
[2018-11-27 06:53] LABS: Basophils # (auto) 0.07 K/uL (0-0.2); Basophils % (auto) 0.7 %; Eosinophils # (auto) 0.34 K/uL (0-0.5); Eosinophils % (auto) 3.2 %; Hematocrit (blood only) 35.3 % (42-52); Hemoglobin 12.7 g/dL (14.0-18.0); Immature Granulocytes # (auto) 0.02 K/uL (0.00-0.02); Immature Granulocytes % (auto) 0.2 %; Lymphocytes # (auto) 2.98 K/uL (1.2-3.4); Lymphocytes % (auto) 28.1 %; Mean Corpuscular Volume 85.3 fL (80-100); Mean Platelet Volume 8.7 fL (7.4-10.4); Monocytes # (auto) 0.55 K/uL (0.11-0.59); Monocytes % (auto) 5.2 %; Neutrophils # (auto) 6.64 K/uL (1.4-6.5); Neutrophils % (auto) 62.6 %; Platelet Count 375 K/uL (130-400); RDW Coefficient of Variation 13.2 % (11.5-14.5); RDW Standard Deviation 41.1 fL (36.4-46.3); Red Blood Count 4.14 M/uL (4.7-6.1); Reticulocyte % 1.1 % (0.5-2.0); Reticulocytes # 0.05 10^6/uL (0.02-0.10)
[2018-11-27 07:09] LABS: Estimated Average Glucose 171 mg/dl; Hemoglobin A1C 7.6 % (4.5-5.6)
[2018-11-27 08:01] LABS: BUN Creatinine Ratio 14.1 (10-20); Calcium 8.8 mg/dl (8.5-10.1); Creatinine Clr Calc Pharmacy 189.8 ml/min; Est GFR (Non-African American) 115.6; Ferritin 90.2 ng/ml (8-388); Potassium 3.8 mmol/L (3.5-5.1)
[2018-11-27] MEDS: INSULIN ASPART 100 UNITS/ML 3 ML PEN SC SCH ×4 (08:50→20:46)
[2018-11-27] MEDS: lamoTRIgine 25 MG TAB PO SCH ×2 (08:51→20:37)
[2018-11-27] MEDS: ATORVASTATIN 40 MG TAB PO SCH (08:52)
[2018-11-27] MEDS: levETIRAcetam 500 MG TAB PO SCH ×2 (08:52→20:35)
[2018-11-27] MEDS: METOPROLOL TARTRATE 25 MG TAB PO SCH ×2 (08:52→20:36)
[2018-11-27] MEDS: ASPIRIN 325 MG ECTAB PO SCH (08:53)
[2018-11-27] MEDS: ENOXAPARIN INJ 40 MG/0.4 ML SYR SQ SCH (08:54)
[2018-11-27] MEDS: INSULIN DETEMIR FLEXPEN/FLEX TOUCH 100 UNITS/ML 3ML SC SCH ×2 (08:55→20:38)
[2018-11-27] MEDS: NICOTINE 14 MG/24 HR PATCH TD SCH (08:55)
--- NOTE | 2018-11-27 09:04 | Neurology Consultation ---
Date of Consultation November 27, 2018 Assessment & Plan (1) H/O ischemic left MCA stroke: Mr. Celestino Fournier is a 43 year old male with history of left MCA stroke s/p left CEA on dual antiplaltet therapy (brillenta and ASA) with history of reported intermittent right sided weakness. Symptoms have resolved and strength is symmetric at this time. MRI brain was completed this afternoon and shows old left MCA stroke. no evidence of acute infarct. CTA head and neck shows prior left M1 oclussion and 75% stenosis of the right ICA. This would be asymptomatic carotid stenosis. Recommend to continue dual antiplatelet therapy and high intensity statin. Discussed importance of blood glucose control and blood pressure management. SBP < 140, DBP<90. HA1c goal<7. Recommend outpatient Neurosurgery or vascular surgery for his right ICA stenosis. he would like to do this closer to home. Would check HA1c while inpatient. unclear if these recurrent episodes of intermittent weakness are compensation of prior stroke. Would recommend TTE with shunt (this can be done as outpatient if patient desire s). Otherwise continue home seizure medications. (2) Left-sided carotid artery disease: (3) Right cavernous carotid stenosis: History of Present Illness Attending Physician: Matteo Antonio MD History of Present Illness A 42 year old male admitted yesterday due reported history of right sided numbness and transient speech difficulty. He has a history of recurrent CVA/TIas on dual Brilinta/aspirin, history Plavix resistance as per patient, PVD, hypertension, hyperlipidemia, DM 2 insulin requiring, mood disorder, seizure disorder, and past tobacco abuse. Patient has been admitted to inpatient psychiatric hospital for mood disorder. He has not been on Brillinta due to medication not available at the hospital. SYmptoms resolved by the time of evaluation in ED. No TPA was given. PAtient reports feeling well this afternoon. Weakness resolved. He lives in [facility] and has history of left CEA. He has history of uncontrolled diabetes in the past with reported HA1c in the 11's at one point. Allergies Allergy/AdvReac Type Severity Reaction Status Date / Time tramadol Allergy Rash Verified 11/26/18 19:04 Home Medications Home Medications Medication Instructions Recorded Confirmed Type acetaminophen [Tylenol] 650 mg PO Q4 PRN 11/26/18 11/26/18 History aripiprazole 10 mg PO HS 11/26/18 11/26/18 History atorvastatin 80 mg PO QAM 11/26/18 11/26/18 History clopidogrel [Plavix] 75 mg PO DAILY 11/26/18 11/26/18 History famotidine 20 mg PO BID PRN 11/26/18 11/26/18 History hydroxyzine pamoate [Vistaril] 50 mg PO HS 11/26/18 11/26/18 History insulin aspart U-100 1 sliding scale dose SUBCUT 11/26/18 11/26/18 History USEASDIRECTD insulin detemir U-100 [Levemir 60 unit SUBCUT HS 11/26/18 11/26/18 History U-100 Insulin] lamotrigine 50 mg PO BID 11/26/18 11/26/18 History levetiracetam [Keppra] 500 mg PO BID 11/26/18 11/26/18 History lidocaine 1 patch TOPICAL QAM 11/26/18 11/26/18 History lisinopril 10 mg PO DAILY 11/26/18 11/26/18 History metformin 1,000 mg PO BID 11/26/18 11/26/18 History metoprolol tartrate 75 mg PO BID 11/26/18 11/26/18 History nicotine 1 patch TRANSDERMAL DAILY 11/26/18 11/26/18 History simethicone 160 mg PO BID PRN 11/26/18 11/26/18 History venlafaxine 37.5 mg PO HS 11/26/18 11/26/18 History zolpidem [Ambien] 10 mg PO HS 11/26/18 11/26/18 History Patient History Medical History Stroke TIA (transient ischemic attack) Surgical History No pertinent past surgical history Family History Other No pertinent family history Social History Preferred Language: Yi Communication Ability: Effective Purchasing And Fiscal Clerk Required: No Beliefs That Will Affect Care: None marital status: Current Living Situation: Spouse and Other Current Living Situation Comment: currently at the [facility] Feels Safe at Home: Yes Safety Concerns: Feels Safe At This Time Smoking Status: Former smoker Do You Dip or Chew Tobacco: No ; Hx Alcohol Use: No Hx Substance Use: No Physical Exam Physical Exam: EXAM: Constitutional: appearance normally developed, well nourished, obese male Head and Face: normocephalic and atraumatic Eyes: normal lids, normal conjunctiva Respiratory: normal effort Cardiovascular: normal pulses Abdomen: non distended Skin: bruising on bilateral forearms Psychiatric: normal mood and normal affect NEUROLOGIC EXAMINATION: Appearance: no acute distress Orientation: awake, alert and oriented x 3 Mental Status: alert Memory: Good Attention: normal Knowledge: appropriate Language: no aphasia Speech: no dysarthria Cranial Nerves: CN 2 - no visual defect on confrontation and pupils round, equal, reactive to light CN 3, 4, 6 - extra-ocular movements intact and no nystagmus CN 5 - facial sensation intact CN 7 - no facial asymmetry CN 8 - intact hearing CN 9, 10 - palate symmetric CN 11 - good shoulder shrug CN 12 - tongue midline Gait:deferred Coordination: no ataxia with finger to nose testing, no tremor Sensory: numbness in both feet (chronic) Muscle Tone: normal Muscle exam: 5/5 throughout Reflexes: No ankle clonus, perry negative Results & Data Vital Signs (Past 12 Hours) Vital Signs Temp Pulse Pulse Resp BP BP BP 11/27/18 07:30 36.7 C 79 20 131/79 11/27/18 03:11 36.5 C 78 20 129/63 11/26/18 22:55 36.5 C 80 82 16 161/90 H 11/26/18 22:02 77 12 158/75 H 11/26/18 21:46 69 14 158/90 H 11/26/18 21:20 76 17 145/82 H 11/26/18 21:18 81 18 Pulse Ox 11/27/18 07:30 98 11/27/18 03:11 98 11/26/18 22:55 99 11/26/18 22:02 99 11/26/18 21:46 100 11/26/18 21:20 100 11/26/18 21:18 100 Diagnostic Findings CTA head and Neck: 1. Abrupt cut off within the distal left M 1 segment of the MCA with reconstitution of the distal branches. This may account for the old left MCA territory infarct is technically age indeterminate. Consider brain MRI to evaluate for an acute infarct. 2. Moderate right and mild left multifocal narrowing within the bilateral carotid siphons due to the calcified plaque. 3. Approximate 75% focal stenosis at the takeoff of the right internal carotid artery. 4. 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 This could also represent a chronic dissection and results in 40% narrowing at this location. 5. Additional findings as described above. 2. No significant stenosis, occlusion, or dissection identified within the carotid or vertebral arteries. MRI Brain: Old left MCA infarct. no evidence of acute infarct.
[2018-11-27 10:00] LABS: Folate (Folic Acid) 13.1 ng/ml (>5.38)
[2018-11-27] MEDS: TICAGRELOR 90 MG TAB PO SCH ×2 (10:33→20:36)
[2018-11-27] MEDS ORDERED: LORazepam 1 MG TAB PO ONE ×2 (10:56→14:45)
--- NOTE | 2018-11-27 15:53 | Magnetic Resonance Report ---
MR brain wo con CLINICAL HISTORY: 43 years-old Male presenting with tia, numbness and weakness on the right side, mem ory difficulty, history of seizures starting in September. TECHNIQUE: Multisequence, multiplanar MR imaging of the brain was performed without the use of intrav enous contrast. IV contrast: None. COMPARISON: Noncontrast CT head performed the previous day. FINDINGS: Localizer images: Unremarkable. Bone marrow signal intensity within the calvarium within normal limits. Normal midline sagittal structures. Ventricles and sulci normal in size. No mass effect or midline sh ift. No restricted diffusion or hemorrhage. Old left parietal infarct with gliosis and cystic encepha lomalacia in this region. No extra-axial fluid collection. T2 skull base flow voids preserved. IMPRESSION: 1. Old left parietal infarct. No acute intracranial abnormality. Electronically signed by: Suresh Canada M.D. 11/27/2018 3:52 PM
--- NOTE | 2018-11-27 16:02 | Magnetic Resonance Report ---
MR angio head wo con CLINICAL HISTORY: 43 years-old Male presenting with right-sided numbness and weakness, memory loss. TECHNIQUE: MR angiography of the head was performed without the use of intravenous contrast using 3-D [id number] technique. 3-D volumetric and/or maximum intensity projection (MIP) images were subse quently reconstructed for review. IV contrast: None. COMPARISON: CTA head from the previous day. FINDINGS: Localizer images: Unremarkable. Anterior circulation: Intracranial portions of the internal carotid arteries patent to the level of t he termini. Aplastic or occluded A1 segment of the right anterior cerebral artery (HAMIDA). Left HAMIDA pat ent as is the left A2 segment. No right A2 segment is evident. Demonstration of abrupt cut off of the distal M1 segment of the left middle cerebral artery (MCA). Distal branches of the left MCA are roberts nt collateral or retrograde flow. Right MCA patent. Anterior communicating artery is hypoplastic or a plastic. Posterior circulation: Codominant vertebral arteries. Intradural portions of the vertebral arteries p atent. Posterior inferior cerebellar arteries patent. Basilar artery patent. Anterior inferior cerebe llar arteries poorly visualized. Superior cerebellar arteries patent. Posterior cerebral arteries pat ent. Right posterior communicating artery (P-comm) patent. Left P-comm hypoplastic or aplastic. IMPRESSION: 1. Occluded or aplastic right HAMIDA. As there is no acute infarct on contemporaneous brain MRI, this i s presumably chronic or, more likely, congenital. 2. Abrupt cut off of the distal M1 segment of the left MCA. Electronically signed by: Suresh Canada M.D. 11/27/2018 4:00 PM
--- NOTE | 2018-11-27 16:47 | Hospitalist Progress Note ---
Date of Service November 27, 2018 Assessment & Plan (1) TIA (transient ischemic attack): TIA H/O left MCA CVA S/P left carotid endarterectomy MRI Brain:Old left parietal infarct. No acute intracranial abnormality. MRA:Occluded or aplastic right HAMIDA. As there is no acute infarct on contempo raneous brain MRI, this is presumably chronic or, more likely, congenital. Abrupt cut off of the distal M1 segment of the left MCA. H/O Recurrent CVA/TIA on dual antiplatelet therapy H/O Plavix resistance as per patient Patient received Plavix instead Brilinta for the last 2 weeks at psychiatric facility--as non formulary Continue aspirin, Brilinta, Lipitor Blood pressure control Appreciate neurology input May need vascular surgery evaluation as outpatient PT/OT eval Hypertension Stable Continue lisinopril, metoprolol Hyperlipidemia on statin H/O PVD S/P surgery Continue aspirin, Brilinta, statin DM II: Hb A1C:7.6 Continue ISS, Basal Insulin Monitor BGs Mood disorder stable Recent Petersen confinement Continue home meds Seizure disorder on Keppra Past tobacco abuse DVT Px: Lovenox SQ Code Status Full code Disposition: PT/OT prior to discharge Subjective Patient is seen and examined at bedside Right-sided weakness, numbness resolved Denies any new focal weakness Also denies any chest pain, SOB, dizziness, headache, change in vision Discussed with neurology today Review of Systems Review of Systems: All systems reviewed & are unremarkable except as noted in HPI & below Physical Exam Physical Exam: Physical Exam: Vitals signs as noted above General Appearance:Obese, no apparent distress Head: normocephalic, Atraumatic Eyes: normal inspection, EOMI Neck: supple, Trachea midline Respiratory/Chest: Decreased breath sounds, CTA Cardiovascular: S1, S2, No murmur Abdomen/GI:Soft, Non tender, Bowel sounds present Extremities/Musculoskelatal:normal inspection, no edema Neurologic/Psych:AAOX3, grossly no focal neurological deficits Skin: normal color, warm Results & Data Vital Signs (Past 12 Hours) Vital Signs Temp Pulse Pulse Resp BP Pulse Ox 11/27/18 13:33 100 11/27/18 12:05 36.5 C 72 20 137/84 97 11/27/18 11:50 36.9 C 77 16 124/81 98 11/27/18 08:50 82 11/27/18 07:30 36.7 C 79 20 131/79 98 Laboratory Results Short CBC 11/26/18 11/27/18 Range/Units 18:42 06:38 WBC 11.08 H 10.60 (4.8-10.8) K/uL Hgb 12.3 L 12.7 L (14.0-18.0) g/dL Hct 35.2 L 35.3 L (42-52) % Plt Count 416 H 375 (130-400) K/uL BMP 11/26/18 11/27/18 18:42 06:38 Sodium 135 L 138 Potassium 3.8 3.8 Chloride 100 104 Carbon Dioxide 25 28 BUN 17 10 D Creatinine 0.88 0.70 Glucose 258 H 156 H Calcium 9.1 8.8 Cardiac Enzymes 11/26/18 Range/Units 18:42 Troponin I < 0.015 (0-0.045) ng/ml Liver Function 11/26/18 Range/Units 18:42 Total Bilirubin 0.3 (0.2-1) mg/dl AST 12 L (15-37) U/L ALT 19 (12-78) U/L Alkaline Phosphatase 102 (45-117) U/L Albumin 3.8 (3.4-5.0) gm/dl
[2018-11-27] MEDS: ARIPiprazole 10 MG TAB PO SCH (20:35)
[2018-11-27] MEDS ORDERED: VENLAFAXINE HCL XR 37.5 MG CAPXR PO SCH (21:00)
[2018-11-27] MEDS ORDERED: ZOLPIDEM TARTRATE 10 MG TAB PO SCH (21:00)
[2018-11-28 07:05] LABS: Hematocrit (blood only) 35.2 % (42-52); Hemoglobin 12.2 g/dL (14.0-18.0); Mean Corpuscular Hgb Conc 34.7 g/dL (32-36); Mean Corpuscular Volume 84.2 fL (80-100); Mean Platelet Volume 8.8 fL (7.4-10.4); Platelet Count 369 K/uL (130-400); RDW Standard Deviation 39.5 fL (36.4-46.3); Red Blood Count 4.18 M/uL (4.7-6.1); White Blood Count 8.26 K/uL (4.8-10.8)
[2018-11-28 07:35] LABS: BUN Creatinine Ratio 11.2 (10-20); Calcium 8.6 mg/dl (8.5-10.1); Creatinine Clr Calc Pharmacy 172.7 ml/min; Est GFR (African American) 128.8; Est GFR (Non-African American) 111.1; Potassium 3.8 mmol/L (3.5-5.1)
[2018-11-28] MEDS: INSULIN ASPART 100 UNITS/ML 3 ML PEN SC SCH ×2 (08:11→11:54)
[2018-11-28] MEDS: TICAGRELOR 90 MG TAB PO SCH (08:14)
[2018-11-28] MEDS: lamoTRIgine 25 MG TAB PO SCH (08:14)
[2018-11-28] MEDS: levETIRAcetam 500 MG TAB PO SCH (08:15)
[2018-11-28] MEDS: NICOTINE 14 MG/24 HR PATCH TD SCH (08:15)
[2018-11-28] MEDS: METOPROLOL TARTRATE 25 MG TAB PO SCH (08:16)
[2018-11-28] MEDS: ASPIRIN 325 MG ECTAB PO SCH (08:16)
[2018-11-28] MEDS: INSULIN DETEMIR FLEXPEN/FLEX TOUCH 100 UNITS/ML 3ML SC SCH (08:16)
[2018-11-28] MEDS: ATORVASTATIN 40 MG TAB PO SCH (08:16)
[2018-11-28] MEDS: ENOXAPARIN INJ 40 MG/0.4 ML SYR SQ SCH (08:17)
[2018-11-28] MEDS ORDERED: LISINOPRIL 10 MG TAB PO SCH (09:00)
--- NOTE | 2018-11-28 11:08 | Hospitalist Progress Note ---
Date of Service November 28, 2018 Assessment & Plan (1) TIA (transient ischemic attack): TIA H/O left MCA CVA S/P left carotid endarterectomy MRI Brain:Old left parietal infarct. No acute intracranial abnormality. MRA:Occluded or aplastic right HAMIDA. As there is no acute infarct on contempo raneous brain MRI, this is presumably chronic or, more likely, congenital. Abrupt cut off of the distal M1 segment of the left MCA. H/O Recurrent CVA/TIA on dual antiplatelet therapy H/O Plavix resistance as per patient Patient received Plavix instead Brilinta for the last 2 weeks at psychiatric facility--as non formulary Continue aspirin, Brilinta, Lipitor Increase lisinopril to 20mg for better BP control Appreciate neurology input Needs vascular surgery evaluation as outpatient PT/OT eval Hypertension Stable Continue lisinopril, metoprolol Increased lisinopril to 20mg daily Hyperlipidemia on statin H/O PVD S/P surgery Continue aspirin, Brilinta, statin DM II: Hb A1C:7.6 Continue ISS, Basal Insulin Monitor BGs Mood disorder stable Recent Petersen confinement Continue home meds Seizure disorder on Keppra Past tobacco abuse DVT Px: Lovenox SQ Code Status Full code Disposition: PT/OT prior to discharge Plan to discharge to [facility] Subjective Patient is seen and examined at bedside No recurrence of focal weakness No new complaints Discussed with Neurology today Denies any chest pain, SOB, dizziness, headache, change in vision Planned to be discharged to [facility] Review of Systems Review of Systems: All systems reviewed & are unremarkable except as noted in HPI & below Physical Exam Physical Exam: Physical Exam: Vitals signs as noted above General Appearance:Obese, no apparent distress Head: normocephalic, Atraumatic Eyes: normal inspection, EOMI Neck: supple, Trachea midline Respiratory/Chest: Decreased breath sounds, CTA Cardiovascular: S1, S2, No murmur Abdomen/GI:Soft, Non tender, Bowel sounds present Extremities/Musculoskelatal:normal inspection, no edema Neurologic/Psych:AAOX3, grossly no focal neurological deficits Skin: normal color, warm Results & Data Vital Signs (Past 12 Hours) Vital Signs Temp Pulse Pulse Resp BP Pulse Ox 11/28/18 08:00 79 11/28/18 07:13 36.8 C 78 20 154/94 H 98 11/28/18 03:44 36.7 C 77 18 113/68 98 11/28/18 00:00 64 Laboratory Results Short CBC 11/28/18 Range/Units 06:53 WBC 8.26 (4.8-10.8) K/uL Hgb 12.2 L (14.0-18.0) g/dL Hct 35.2 L (42-52) % Plt Count 369 (130-400) K/uL BMP 11/28/18 06:53 Sodium 135 L Potassium 3.8 Chloride 104 Carbon Dioxide 23 BUN 9 Creatinine 0.77 Glucose 223 H Calcium 8.6
[2018-11-28] MEDS ORDERED: STROKE PATIENT DISCHARGE STA (11:32)
--- NOTE | 2018-11-28 11:35 | Discharge Summary ---
Date of Service November 28, 2018 Admission HPI Per Admitting Provider History obtained from patient and records. Medical history significant for recurrent CVA/TIas on dual Brilinta/aspirin prophylaxis, history Plavix resistance as per patient, PVD status post surgery, hypertension, hyperlipidemia, DM 2 insulin requiring, mood disorder, seizure disorder, past tobacco abuse. Patient has been confined at the [facility] the last 2 weeks for mood issues. Patient's home Brilinta/aspirin replaced with Plavix upon arrival at the psychiatric center 2 weeks ago due to Brilinta unavailability at the facility. Patient claims he notified [facility] medical provider of hx Plavix resistance on testing but "they did not listen." Slated to be discharged in the next 2 days given improvement of psychiatric issues. Around 4 PM today patient noted right face, right upper extremity, and right lower extremity numbness, weakness similar to strokes in the past. Transient slurred speech symptoms. Transient achy headache symptoms. Stroke alert called upon arrival at the ER. Patient noted improvement of neurologic symptoms. Full dose aspirin given at the ER on the recommendation of tele-stroke specialist. Medical History as above Lipid panel October, as follows : Total cholesterol 152, serum triglycerides 181, HDL cholesterol 39, VLDL cholesterol 36, LDL cholesterol 77 Surgical History : Tonsillectomy, carotid endarterectomy, hernia surgery Family History : Heart disease, diabetes, stroke Personal/Social history : Past tobacco abuse, occasional EtOH intake, currently unemployed, was previously security work Admission Exam Per Admitting Provider GENERAL: Comfortable, obese, no respiratory distress, sitting on the stretcher with legs crossed SKIN: Pallor, warm HEENT: Pale palpebral conjunctivae, no ptosis, dry buccal mucosa NECK : Supple, short neck, no tenderness CHEST : CTA, no tenderness HEART : RRR, no obvious murmurs ABDOMEN: Some distention, nontender EXTREMITIES : Minimal LE swelling, no LE tenderness, no other conspicuous deformities noted NEUROLOGIC : Coherent, no facial asymmetry, no other gross focality Principal Diagnosis Discharge Information Discharge Diagnosis Transient Ischemic Attack Discharge Goals Decrease discomfort,Improve disease control, Improve function Discharge Activity Limitations Resume your previous activity Discharge Data Allergies Allergy/AdvReac Type Severity Reaction Status Date / Time tramadol Allergy Rash Verified 11/26/18 19:04 Consultations 11/26/18 20:31 ED Decision to Admit Stat 11/26/18 23:07 Consult Case Management - Discharge Planning Routine Consult Neurology Routine 11/28/18 10:59 Burn CD for patient Routine Procedures Performed MRI Brain: Old left parietal infarct. No acute intracranial abnormality. MRA Brain: Occluded or aplastic right HAMIDA. As there is no acute infarct on contemporaneous brain MRI, this is presumably chronic or, more likely, congenital. Abrupt cut off of the distal M1 segment of the left MCA. Neck CTA: 1. Abrupt cut off within the distal left and 1 segment of the MCA with reconstitution of the distal branches. This may account for the old left MCA territory infarct is technically age indeterminate. Consider brain MRI to evaluate for an acute infarct. 2. Moderate right and mild left multifocal narrowing within the bilateral carotid siphons due to the calcified plaque. 3. Approximate 75% focal stenosis at the takeoff of the right internal carotid artery. 4. 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 This could also represent a chronic dissection and results in 40% narrowing at this location. 5. Additional findings as described above. 2. No significant stenosis, occlusion, or dissection identified within the carotid or vertebral arteries. Head CTA: 1. Abrupt cut off within the distal left and 1 segment of the MCA with reconstitution of the distal branches. This may account for the old left MCA territory infarct is technically age indeterminate. Consider brain MRI to evaluate for an acute infarct. 2. Moderate right and mild left multifocal narrowing within the bilateral carotid siphons due to the calcified plaque. 3. Approximate 75% focal stenosis at the takeoff of the right internal carotid artery. 4. 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 This could also represent a chronic dissection and results in 40% narrowing at this location. 5. Additional findings as described above. 2. No significant stenosis, occlusion, or dissection identified within the carotid or vertebral arteries. CT head: No acute abnormality. 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 CXR: No acute process. Ordered Studies 11/26/18 18:27 CT head/brain wo con Stat 11/26/18 19:14 CT angio head w con Stat CT angio neck with con Stat 11/27/18 23:07 MR angio head wo con Routine MR brain wo con Routine Hospital Course (1) TIA (transient ischemic attack): TIA H/O left MCA CVA S/P left carotid endarterectomy MRI Brain:Old left parietal infarct. No acute intracranial abnormality. MRA:Occluded or aplastic right HAMIDA. As there is no acute infarct on contemporaneous brain MRI, this is presumably chronic or, more likely, congenital. Abrupt cut off of the distal M1 segment of the left MCA. H/O Recurrent CVA/TIA on dual antiplatelet therapy H/O Plavix resistance as per patient Patient received Plavix instead Brilinta for the last 2 weeks at psychiatric facility--as non formulary Continue aspirin, Brilinta, Lipitor Appreciate neurology input Needs vascular surgery evaluation as outpatient PT/OT eval Hypertension Stable Continue lisinopril, metoprolol Hyperlipidemia on statin H/O PVD S/P surgery Continue aspirin, Brilinta, statin DM II: Hb A1C:7.6 Continue ISS, Basal Insulin Monitor BGs Mood disorder stable Recent [facility] confinement Continue home meds Seizure disorder on Keppra Past tobacco abuse DVT Px: Lovenox SQ Code Status Full code Disposition: PT/OT prior to discharge Plan to discharge to [facility] today Total Time Total Time Spent Total Time Spent (In Minutes): 35 minutes Total Time Includes: Examination of the Patient, Discharge Planning, Medication Reconciliation, Communication With Other Providers and Other Discharge Plan Discharge Items Patient Disposition: Transfer Behavioral Health Fac Reason For Visit: TIA Discharge Diagnosis: Transient Ischemic Attack Discharge Goals: Decrease discomfort, Improve disease control and Improve function Activity: Resume your previous activity Exercise/Sports: Gradually increase as tolerated Non-emergency contact: Primary Care Provider, Surgeon and Neurologist Call non-emergency contact if: you have any medication questions, your symptoms worsen, your pain is not controlled, your pain is worsening, your pain is unusual for you, your pain is concerning for you and you have a fever Follow-up/Referrals: Benjamin Petersen [Primary Care Provider] - Diet: Carb Consistent or DM2 and Heart Healthy Addtl Provider Instructions: Follow up with your Primary Care Physician in 1 week Follow up with your Neurologist in 4-6 weeks Follow up with your Neurovascular Surgeon in 4 weeks as advised for evaluation of right internal carotid artery stenosis Continue taking aspirin, brilinta, lipitor (Do not switch Brilinta to Plavix given history of Plavix resistance) Seek immediate medical attention if your symptoms reoccur or worsen Risk Factors for Stroke: You can reduce your chances of stroke by working with your medical provider to adopt a healthy lifestyle. Some specific ways to lower your chance of stroke are: * If you are a smoker, now is the time to stop smoking cigarettes * If you are diabetic, improve the control of your blood sugars * Avoid excessive amounts of alcohol * Control high blood pressure * Lose weight if you are overweight * Be sure to lead an active lifestyle * Eat a healthy diet low in salt, cholesterol and fat You should know about other risk factors for stroke that you are unable to control. These include: * Age 55 years or older * Male gender * Certain racial groups: , or / * Family History of Stroke, Mini stroke or Heart Attack * Sickle Cell Disease Follow Up: It is important for you to keep your follow up appointments with your medical provider. Who to Call and When: Medical Emergencies: Call 911 immediately if you experience any of the following warning signs and symptoms of Stroke: * Sudden numbness or weakness of the face, arm or leg, especially on one side of the body * Sudden confusion, trouble speaking or understanding * Sudden trouble seeing in one or both eyes * Sudden trouble walking, dizziness, loss of balance or coordination * Sudden severe headache with no cause Do not delay calling 911 if you experience any warning signs or symptoms of a stroke. Delay in seeking medical attention may affect what treatments can be given to you. . Prescriptions: Continued atorvastatin 40 mg Tablet 80 mg PO QAM RF: 0 metformin 500 mg Tablet 1,000 mg PO BID RF: 0 venlafaxine 37.5 mg Capsule,Extended Release 24hr 37.5 mg PO HS RF: 0 acetaminophen [Tylenol] 325 mg Tablet 650 mg PO Q4 PRN (Reason: Pain) RF: 0 nicotine 14 mg/24 hr Patch 24 Hour 1 patch TRANSDERMAL DAILY RF: 0 lidocaine 4 % Adhesive Patch,Medicated 1 patch TOPICAL QAM RF: 0 levetiracetam [Keppra] 500 mg Tablet 500 mg PO BID RF: 0 hydroxyzine pamoate [Vistaril] 50 mg Capsule 50 mg PO HS RF: 0 lamotrigine 25 mg Tablet 50 mg PO BID RF: 0 famotidine 20 mg Tablet 20 mg PO BID PRN (Reason: GERD) RF: 0 insulin aspart U-100 100 unit/mL Solution 1 sliding scale dose SUBCUT USEASDIRECTD RF: 0 lisinopril 10 mg Tablet 10 mg PO DAILY RF: 0 zolpidem [Ambien] 10 mg Tablet 10 mg PO HS RF: 0 simethicone 80 mg Tablet,Chewable 160 mg PO BID PRN (Reason: GAS/BLOATING) RF: 0 aripiprazole 10 mg Tablet 10 mg PO HS RF: 0 metoprolol tartrate 25 mg Tablet 75 mg PO BID RF: 0 Levemir U-100 Insulin 100 unit/mL Solution 60 unit SUBCUT HS RF: 0 aspirin 325 mg Tablet,Delayed Release (Dr/Ec) 325 mg PO DAILY RF: 0 Brilinta 90 mg Tablet 90 mg PO BID RF: 0 Stand-Alone Forms: [facility] Discharge Orders: Discharge Order (Routine); Ordered 11/28/18 Ordered By: Matteo Antonio Admission Data Admit Date/Time: 11/26/18 22:02 Attending Provider: Matteo Antonio Admit Provider: Roland Issa Primary Care Provider: Benjamin Petersen Other Providers: Roland Issa ; Annetta Frausto John E ; Schaefer, Kathleen ; James Garcia Service: Telemetry Medical Other Interventions: Discharge Summary Assessment (RN) Last Done: 11/28/18 12:15 Pending Studies at Discharge: No DC Date/Time DO NOT enter until pt leaves facility: 11/28/18 13:35
== END 2018-11-28 13:35 ==
LOC: 2N 18:23 → ED 18:23 → SUATTDRO 22:02 → 2N 22:39